=== PATIENT | male | born 2000 | race Caucasian/White ===

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

== ENCOUNTER 2022-07-20 18:46 | Emergency (ER) | payer MEDICAID ==
[~2022-07-20] VITALS: Ht 182.9 cm; Wt 100.0 kg
[2022-07-20 19:49] LABS: BASOPHILS % 0.5 % (0.0-2.0); EOSINOPHILS % 3.1 % (0.0-5.0); HEMATOCRIT. 43.5 % (42.0-52.0); HEMOGLOBIN. 14.2 g/dL (14.0-18.0); LYMPHOCYTES % 18.4 % (20.0-50.0); MEAN CORPUSCULAR HEMOGLOBIN 26.1 pg (28.0-32.0); MEAN CORPUSCULAR VOLUME 79.8 fL (80.0-94.0); MEAN PLATELET VOLUME 10.4 fl (7.4-10.4); PLATELET 286 x1000/uL (130-400); RED BLOOD CELL COUNT 5.45 mill/uL (4.7-6.1); RED CELL DISTRIBUTION WIDTH 14.5 % (11.6-14.6)
[2022-07-20 20:02] LABS: CHLORIDE 107 mEq/L (98-107)
[2022-07-20 20:06] LABS: ETHANOL BLOOD < 10 mg/dL
[2022-07-21 02:16] LABS: CLARITY URINE CLEAR (CLEAR); COLOR URINE YELLOW (YELLOW); KETONES URINE 2+ (NEGATIVE); LEUKOCYTE ESTERASE URINE NEGATIVE (NEGATIVE); NITRITE URINE NEGATIVE (NEGATIVE); OCCULT BLOOD URINE NEGATIVE (NEGATIVE); PH URINE 5.5 (4.5-8.0); PROTEIN URINE NEGATIVE (NEGATIVE); SPECIFIC GRAVITY URINE 1.025 (1.005-1.030)
[2022-07-21 03:12] LABS: *AMPHETAMINES SCREEN URINE NEGATIVE (NEGATIVE); *BARBITURATES SCREEN URINE NEGATIVE (NEGATIVE); *BENZODIAZEPINES SCREEN URINE NEGATIVE (NEGATIVE); *COCAINE SCREEN URINE NEGATIVE (NEGATIVE); CANNABINOID URINE SCREEN PRESUMTIVE POSITIVE (NEGATIVE); METHADONE URINE SCREEN NEGATIVE (NEGATIVE); OPIATES URINE SCREEN NEGATIVE (NEGATIVE); PHENCYCLIDINE URINE SCREEN NEGATIVE (NEGATIVE)
[2022-07-21] MEDS ORDERED: LORAZEPAM 2MG/ML CPJ IM ONE (14:45)
[2022-07-21] MEDS: OLANZAPINE 5MG TABLET ODT PO SCH (17:00)
[2022-07-22] MEDS: OLANZAPINE 5MG TABLET ODT PO SCH (09:00)
[2022-07-22] MEDS ORDERED: LORAZEPAM 2MG/ML CPJ IM ONE (10:00)
[2022-07-22 11:10] VITALS: BP 117/60
== END 2022-07-22 11:23 | disposition home or self-care (01) ==
LOC: ER 18:46
DX: F91.8 Other conduct disorders (principal); G93.49 Other encephalopathy; F12.10 Cannabis abuse, uncomplicated; Z20.822 Contact with and (suspected) exposure to COVID-19; Y92.018 Other place in single-family (private) house as the place of occurrence of the external cause
CPT/HCPCS: 36415; 70450; 80053; 80305; 80320; 81001; 85025; 87426; 96372; 99285; C9803; G0480